=== PATIENT | female | born 1985 | race Two or more races ===

== ENCOUNTER 2019-09-17 13:41 | Outpatient (CLI) | payer OTHER | END 2019-09-17 13:42 | disposition critical access hospital (66) | LOC: EMS 13:41 | PROVIDERS: ATTEND Surgery | DX: R07.9 Chest pain, unspecified (principal) | CPT/HCPCS: A0425; A0427 ==

== ENCOUNTER 2019-09-17 14:03 | Emergency (ER) | payer OTHER ==
--- NOTE | 2019-09-17 14:12 | ED Physician Documentation ---
PD HPI CHEST PAIN - Stated complaint Stated Complaint: CP - History obtained from History obtained from: Patient, EMS - History of Present Illness Timing - onset: Today (In the shower at 1pm developed sharp central nonradiating chest pain. No SOA. Was nauseous with it. Got somewhat better with ASA/ntg with EMS. Still present. Got back from [place] but >1 month ago. No leg pain, calf swelling, or PE. No personal history or family history of coronary disease.) Review of Systems Constitutional: denies: Fever, Chills Nose: denies: Rhinorrhea / runny nose, Congestion Cardiac: denies: Palpitations, Pedal edema, Calf pain Respiratory: denies: Dyspnea, Cough, Hemoptysis, Wheezing GI: reports: Abdominal Pain (She had some abdominal pain a few days ago, completely gone now.) PD PAST MEDICAL HISTORY - Allergies Allergies/Adverse Reactions: Allergies Allergy/AdvReac Type Severity Reaction Status Date / Time No Known Drug Allergies Allergy Verified 09/17/19 14:15 PD ED PE NORMAL - Vitals Vital signs reviewed: Yes - General General: Alert and oriented X 3, No acute distress - HEENT HEENT: PERRL, EOMI - Neck Neck: Supple, no meningeal sign, No bony TTP, No bruit - Cardiac Cardiac: RRR, No murmur, Other (tender low sternum) - Respiratory Respiratory: No respiratory distress, Clear bilaterally - Abdomen Abdomen: Normal bowel sounds, Soft, Non tender - Back Back: No CVA TTP, No spinal TTP - Derm Derm: Normal color, Warm and dry - Extremities Extremities: No edema, No calf tenderness / cord - Neuro Neuro: Alert and oriented X 3, Normal speech Results - Vitals Vitals: Vital Signs - 24 hr 09/17/19 09/17/19 14:03 14:21 Temperature 36.3 C L Heart Rate 95 Respiratory 18 Rate Blood Pressure 134/69 H O2 Saturation 99 Oxygen O2 Source Room air - EKG (time done) 1411 Rate: Rate (enter#) Rhythm: NSR [place]: Normal Intervals: Normal [place] QRS: Normal Ischemia: Normal ST segments Computer interpretation: Agree with computer - Labs Labs: Laboratory Tests 09/17/19 09/17/19 09/17/19 14:28 14:28 14:28 WBC 5.3 RBC 4.55 Hgb 11.8 L Hct 38.0 MCV 83.5 MCH 25.9 L MCHC 31.1 L RDW 14.0 Plt Count 235 MPV 9.8 Neut # (Auto) 3.9 Lymph # (Auto) 1.0 L [place] # (Auto) 0.3 Eos # (Auto) 0.0 Baso # (Auto) 0.0 Absolute Nucleated RBC 0.00 Nucleated RBC % 0.0 D-Dimer 246.1 Sodium 139 Potassium 3.4 L Chloride 105 Carbon Dioxide 27 Anion Gap 7.0 BUN 11 Creatinine 0.7 Estimated GFR (MDRD) 96 Glucose 97 Calcium 8.6 Total Bilirubin 0.6 AST 16 ALT 12 Alkaline Phosphatase 56 Troponin I High Sens Total Protein 7.0 Albumin 3.7 Globulin 3.3 Albumin/Globulin Ratio 1.1 Lipase 43 09/17/19 14:28 WBC RBC Hgb Hct MCV MCH MCHC RDW Plt Count MPV Neut # (Auto) Lymph # (Auto) [place] # (Auto) Eos # (Auto) Baso # (Auto) Absolute Nucleated RBC Nucleated RBC % D-Dimer Sodium Potassium Chloride Carbon Dioxide Anion Gap BUN Creatinine Estimated GFR (MDRD) Glucose Calcium Total Bilirubin AST ALT Alkaline Phosphatase Troponin I High Sens < 2.3 L Total Protein Albumin Globulin Albumin/Globulin Ratio Lipase PD MEDICAL DECISION MAKING - ED course ED course: 34-year-old woman with chest pain consistent with costochondritis, heart score is 0. D-dimer negative. Nothing in the history or physical to suggest dissection. Pain minimal prior to discharge. Departure - Departure Disposition: 01 Home, Self Care Clinical Impression: Costochondritis, acute Chest pain Qualifiers: Chest pain type: chest pain on breathing Qualified Code(s): R07.1 - Chest pain on breathing; R07.81 - Pleurodynia Condition: Good Record reviewed to determine appropriate education?: Yes Instructions: ED Chest Pain Costochondritis Comments: Call your doctor to arrange a follow-up appointment, make the next available appointment. In the interim, return anytime if worse or if new symptoms develop.
[2019-09-17 14:34] LABS: BASOPHILS % (AUTO) 0.4 %; EOSINOPHILS % (AUTO) 0.8 %; HGB - HEMOGLOBIN 11.8 g/dL (12.0-16.0); MEAN CORPUSCULAR HEMOGLOBIN 25.9 pg (27.0-31.0); MEAN CORPUSCULAR HGB CONC 31.1 g/dL (32.0-36.0); MEAN CORPUSCULAR VOLUME 83.5 fL (81.0-99.0); MEAN PLATELET VOLUME 9.8 fL (7.9-10.8); MONOCYTES # (AUTO) 0.3 10^3/uL (0.0-1.0); MONOCYTES % (AUTO) 6.2 %; NEUTROPHILS # (AUTO) 3.9 10^3/uL (1.5-6.6); NEUTROPHILS % (AUTO) 73.4 %; PLT - PLATELET COUNT 235 10^3/uL (130-450); RED BLOOD COUNT 4.55 10^6/uL (4.20-5.40); WHITE BLOOD COUNT 5.3 x10^3/uL (4.8-10.8)
--- NOTE | 2019-09-17 14:44 | XRAY Report ---
Reason: chest pain Procedure Date: 09/17/2019 Accession Number: [id number] / [id number] Procedure: XR - Chest 1 View X-Ray CPT Code: 69434 Final Report FULL RESULT: EXAM: CHEST RADIOGRAPHY EXAM DATE: 09/17/2019 02:38 PM. CLINICAL HISTORY: Chest pain. Sharp substernal chest pain. COMPARISON: None. TECHNIQUE: 1 view. FINDINGS: Lungs/Pleura: No focal opacities evident. No pleural effusion. No pneumothorax. Mediastinum: Within exam limitations, the cardiomediastinal contour is normal. Other: None. IMPRESSION: Normal single view chest. RADIA
[2019-09-17 14:51] LABS: ALBUMIN 3.7 g/dL (3.2-5.5); ALBUMIN/GLOBULIN RATIO 1.1 (1.0-2.2); BILIRUBIN,TOTAL 0.6 mg/dL (0.2-1.0); CALCIUM 8.6 mg/dL (8.5-10.3); CREATININE 0.7 mg/dL (0.4-1.0)
[2019-09-17 15:15] VITALS: BP 119/69
== END 2019-09-17 15:17 | disposition home or self-care (01) ==
LOC: ED 14:03
DX: M94.0 Chondrocostal junction syndrome [Tietze] (principal); R07.1 Chest pain on breathing
CPT/HCPCS: 36415; 71045; 80053; 83690; 84484; 85025; 85379; 93005; 99284

== ENCOUNTER 2020-03-19 16:50 | Outpatient (CLI) | payer OTHER | END 2020-03-19 23:59 | disposition critical access hospital (66) | LOC: EMS 16:50 | PROVIDERS: ATTEND Surgery | DX: R41.82 Altered mental status, unspecified (principal); T45.0X2A Poisoning by antiallergic and antiemetic drugs, intentional self-harm, initial encounter | CPT/HCPCS: A0425; A0427 ==

== ENCOUNTER 2020-03-19 17:05 | Observation (INO) | payer OTHER ==
--- NOTE | 2020-03-19 17:13 | ED Physician Documentation ---
PD HPI OVERDOSE - Stated complaint Stated Complaint: OD - History obtained from History obtained from: Patient, EMS - History of Present Illness Timing - onset: Today - Additional information Additional information: 34-year-old woman says she was not suicidal when she took approximately 600 mg of Benadryl at about 3:50 PM today. She was "just trying to sleep." Per paramedics she was getting a little more somnolent on the way. No history of depression per her. No possibility of . No coingestants. Review of Systems Ten Systems: 10 systems reviewed and negative Constitutional: denies: Fever, Chills Skin: denies: Rash, Lesions Musculoskeletal: denies: Neck pain, Back pain Psychiatric: denies: Depressed, Suicidal, Homicidal PD PAST MEDICAL HISTORY - Past Medical History Respiratory: Asthma - Past Surgical History Past Surgical History: No - Allergies Allergies/Adverse Reactions: Allergies Allergy/AdvReac Type Severity Reaction Status Date / Time No Known Drug Allergies Allergy Verified 09/17/19 14:15 - Social History Does the pt smoke?: No Smoking Status: Never smoker Does the pt drink ETOH?: No Does the pt have substance abuse?: No - Immunizations Immunizations: TDAP >10years/unknown PD ED PE NORMAL - Vitals Vital signs reviewed: Yes - General General: Alert and oriented X 3, Other (Slow to answer questions) - HEENT HEENT: Other (Dry MM, flushed, sl dilated pupils ++ nystagmus) - Neck Neck: Supple, no meningeal sign, No bony TTP - Cardiac Cardiac: RRR, No murmur - Respiratory Respiratory: No respiratory distress, Clear bilaterally - Abdomen Abdomen: Normal bowel sounds, Soft, Non tender - Back Back: No CVA TTP, No spinal TTP - Derm Derm: Normal color, Warm and dry - Extremities Extremities: No edema, No calf tenderness / cord - Neuro Neuro: Alert and oriented X 3, No motor deficit, No sensory deficit, Normal speech Results - Vitals Vitals: Vital Signs - 24 hr 03/19/20 03/19/20 17:10 17:24 Temperature 36.4 C L Heart Rate 96 98 Respiratory 14 10 L Rate Blood Pressure 129/71 129/71 O2 Saturation 99 99 Oxygen O2 Source Room air - EKG (time done) 1722 Rate: Rate (enter#) (98) Rhythm: NSR [place]: Normal Intervals: Normal [place]. No: Prolonged QT QRS: Normal Ischemia: Normal ST segments - Labs Labs: Laboratory Tests 03/19/20 03/19/20 17:28 17:28 WBC 7.2 RBC 4.76 Hgb 12.3 Hct 39.8 MCV 83.6 MCH 25.8 L MCHC 30.9 L RDW 13.8 Plt Count 242 MPV 10.0 Neut # (Auto) 5.9 Lymph # (Auto) 1.0 L [place] # (Auto) 0.3 Eos # (Auto) 0.0 Baso # (Auto) 0.0 Absolute Nucleated RBC 0.00 Nucleated RBC % 0.0 Sodium 141 Potassium 3.4 L Chloride 104 Carbon Dioxide 26 Anion Gap 11.0 BUN 12 Creatinine 0.8 Estimated GFR (MDRD) 82 L Glucose 97 Calcium 8.7 Total Bilirubin 0.6 AST 17 ALT 12 Alkaline Phosphatase 53 Total Protein 7.1 Albumin 4.0 Globulin 3.1 Albumin/Globulin Ratio 1.3 Lipase 34 Salicylates < 6.0 Acetaminophen < 10 L Ethyl Alcohol < 5.0 PD MEDICAL DECISION MAKING - ED course ED course: Spoke with Rosemary at Poison control about 515pm -> benzos, no charcoal, check and monitor qtc, if v agitated consider physostigmine. 34-year-old woman who took a very large Benadryl overdose. She was somnolent here but did not deteriorate to the point of needing intubation. She will need to be watched closely and spoke with Dr. Carrillo for ICU observation at 6:03 PM. QTC was normal in the emergency department but will need to be followed. Per RN the sister called and the patient had sent the sister some concerning texts suggestive of suicidal ideation even though the patient denied this. Departure - Departure Disposition: ED Place in Observation Clinical Impression: Diphenhydramine overdose of undetermined intent Qualifiers: Encounter type: initial encounter Qualified Code(s): T45.0X4A - Poisoning by antiallergic and antiemetic drugs, undetermined, initial encounter Altered mental status Qualifiers: Altered mental status type: delirium Qualified Code(s): R41.0 - Disorientation, unspecified Condition: Critical
[2020-03-19 17:43] LABS: BASOPHILS % (AUTO) 0.3 %; HGB - HEMOGLOBIN 12.3 g/dL (12.0-16.0); MEAN CORPUSCULAR HEMOGLOBIN 25.8 pg (27.0-31.0); MEAN CORPUSCULAR HGB CONC 30.9 g/dL (32.0-36.0); MEAN CORPUSCULAR VOLUME 83.6 fL (81.0-99.0); MONOCYTES # (AUTO) 0.3 10^3/uL (0.0-1.0); MONOCYTES % (AUTO) 3.5 %; NEUTROPHILS # (AUTO) 5.9 10^3/uL (1.5-6.6); NEUTROPHILS % (AUTO) 81.9 %; PLT - PLATELET COUNT 242 10^3/uL (130-450); RED BLOOD COUNT 4.76 10^6/uL (4.20-5.40); RED CELL DISTRIBUTION WIDTH 13.8 % (12.0-15.0); WHITE BLOOD COUNT 7.2 x10^3/uL (4.8-10.8)
[2020-03-19 17:57] LABS: ACETAMINOPHEN < 10 ug/mL (10-30); ALBUMIN/GLOBULIN RATIO 1.3 (1.0-2.2); ALKALINE PHOSPHATASE 53 IU/L (42-121); ALT ALANINE AMINOTRANSFERASE 12 IU/L (10-60); AST ASPARTATE AMINOTRANSFERASE 17 IU/L (10-42); BILIRUBIN,TOTAL 0.6 mg/dL (0.2-1.0); BUN - BLOOD UREA NITROGEN 12 mg/dL (6-20); CALCIUM 8.7 mg/dL (8.5-10.3); CARBON DIOXIDE - CO2 26 mmol/L (21-32); CHLORIDE 104 mmol/L (101-111); CREATININE 0.8 mg/dL (0.4-1.0); GLUCOSE 97 mg/dL (70-100); LIPASE 34 U/L (22-51); SALICYLATE < 6.0 mg/dL; SODIUM 141 mmol/L (135-145); TOTAL PROTEIN 7.1 g/dL (6.7-8.2)
[2020-03-19] MEDS ORDERED: SODIUM CHLORIDE FLUSH 0.9% 10 ML SYRINGE IVP PRN (18:04)
[2020-03-19] MEDS ORDERED: ACETAMINOPHEN 325 MG TABLET PO PRN (18:04)
[2020-03-19 18:09] LABS: HCG,QUALITATIVE BLOOD NEGATIVE
--- NOTE | 2020-03-19 18:29 | HISTORY & PHYSICAL EXAMINATION ---
Chief Complaint - Chief Complaint Chief Complaint: Drug overdose History of Present Illness - Admitted From Admitted From:: Home - History Obtained From Records Reviewed: Yes History obtained from: Patient, ER Physician, EMR - History of Present Illness HPI Comment/Other: This is a 34-year-old female with a past medical history significant for asthma who presents to the emergency department today after overdosing on Benadryl. Her sdfgnq-rm-let, Faith had called in to check on the patient as she had received some texts that were concerning to her. These texts had stated that the patient had failed at everything and she asked Faith to take care of her children. This led Faith to believe the patient may have intent to harm herself. Does believe that the patient took 600 mg of Benadryl at approximately 3:50 PM. Upon my evaluation, she is lethargic but is open her eyes and respond slowly to questions but she does not answer many of my questions. She denies this is a suicide attempt. She denies a history of depression or prior suicide attempts. She denies ingestion of any other drugs. She did not clearly state that she took Benadryl but stated that she took a sleeping aid and she is not sure how much she took. She states that she was is trying to get some rest. She currently complains of the urge to urinate. When asked any other questions, she declines to answer stating she is ready answered these questions multiple ti mes and she does not want to answer them again. In the emergency department, she is found to be hemodynamically stable. Her labs are unremarkable except for potassium of 3.4. Acetaminophen, salicylate, alcohol are all negative. Urine is also negative. Her EKG shows sinus rhythm with a QRS of 100 ms and a QTC of 459. Given the above findings, medicine was consulted for admission. History - Past Medical History Respiratory: reports: Asthma Psych: reports: Anxiety - Family & Social History Family History Comment/Other: Unable to obtain family history as the patient she does not answer questions at this moment. Living arrangement: At home Living Situation: With family Social History Notes: She reports she lives at home with her niece. She denies any smoking, alcohol use, illicit drug use. - POLST Patient has POLST: No Meds/Allgy - Allergies Allergies/Adverse Reactions: Allergies Allergy/AdvReac Type Severity Reaction Status Date / Time No Known Drug Allergies Allergy Verified 09/17/19 14:15 Review of Systems - Genitourinary Genitourinary: reports: Urgency (Review of systems is limited as the patient chooses to not answer most questions.) - All Other Systems All Other Systems: reports: Other Prior Level of Functionality: She is independent with her ADL's. Exam - Vital Signs Reviewed Vital Signs: Yes Vital Signs: Vital Signs x48h Temp Pulse Resp BP Pulse Ox 03/19/20 17:24 98 10 L 129/71 99 03/19/20 17:10 36.4 C L 96 14 129/71 99 - Physical Exam General Appearance: positive: Lethargic, Other (She is lethargic but does answer some questions slowly at times.) Eyes Bilateral: positive: Other (Pupils dilated at 4mm. Horizontal nystagmus noted bilaterally.) ENT: positive: ENT inspection nml, Dry mucous membranes Neck: positive: Nml inspection Respiratory: positive: No respiratory distress. negative: Wheezes, Rales Cardiovascular: positive: No murmur, Tachycardia. negative: Irregularly irregular, Bradycardia, Systolic murmur Abdomen: positive: Non-tender, No distention. negative: Tenderness Skin: positive: Warm, Dry Extremities: positive: Full ROM, No pedal edema Neurologic/Psychiatric: positive: Oriented x3, Other (No focal motor deficits on exam.). negative: Disoriented to person, Disoriented to place, Disoriented to time Conclusion/Plan - Problem List (1) Diphenhydramine overdose of undetermined intent Conclusion/Plan: She presents after ingesting 600 mg of Benadryl at 3:50 PM. She has a lethargic but is awake and able to protect her airway. No evidence of seizures at this time. Her EKG shows a QRS of 100 and a QTC of 459. I spoke with poison control who recommended observing her for 68 hours and if she shows no evidence of seizures or tachyarrhythmias then she will likely be medically cleared at that time. We will repeat her EKG at 10 PM this evening. If her QRS is 110 or greater then we will give her sodium bicarbonate. We will give her a liter of lactated Ringer's now continue her on maintenance IV fluids. We will monitor her on telemetry and monitor her neurologic status. Place her in one-to-one observation given the concern for possible suicide attempt. We will have social work evaluate the patient in the morning. Qualifiers: Encounter type: initial encounter Qualified Code(s): T45.0X4A - Poisoning by antiallergic and antiemetic drugs, undetermined, initial encounter (2) Lethargy Conclusion/Plan: This is secondary to the Benadryl overdose. We will monitor her neurologic s tatus and airway. - Lab Results Lab results reviewed: Yes Fish Bones: 03/19/20 17:28 03/19/20 17:28 - EKG Results EKG Interpreted Independently: Yes EKG Findings: EKG shows a sinus rhythm with a QRS of 100 and QTC of 459. Core Measures - Anticipated LOS I expect patient to be DC'd or transferred within 96 hours.: Yes - Issues Hospital Issues and Management Plan: 34-year-old female who ingested 600 mg of Benadryl. Should be placed in observation for further monitoring on telemetry and trending her EKG. - DVT/VTE - Prophylaxis VTE/DVT Device ordered at admit?: Yes VTE/DVT Prophylaxis med ordered at admit?: Yes
[2020-03-19 18:45] LABS: MAGNESIUM 1.9 mg/dL (1.7-2.8)
[2020-03-19] MEDS ORDERED: LACTATED RINGERS 1,000 ML IV ONE (19:16)
[2020-03-19] MEDS: SODIUM CHLORIDE FLUSH 0.9% 10 ML SYRINGE IVP SCH (20:04)
[2020-03-19] MEDS: LACTATED RINGERS 1,000 ML IV SCH (20:05)
[2020-03-19 20:42] LABS: MUDS CUTOFF CONCENTRATIONS CUTOFF CONC BELOW:
[2020-03-19 20:46] LABS: BILIRUBIN,URINE NEGATIVE (NEGATIVE); GLUCOSE, URINE (UA) NEGATIVE (NEGATIVE); KETONES,URINE (UA) NEGATIVE (NEGATIVE); LEUKOCYTE ESTERASE, URINE TRACE (NEGATIVE); NITRITE,URINE NEGATIVE (NEGATIVE); OCCULT BLOOD,URINE LARGE (NEGATIVE); PROTEIN,URINE 30 mg/dL (NEGATIVE); UROBILINOGEN,URINE 0.2 (NORMAL) E.U./dL (NORMAL)
[2020-03-19 20:59] LABS: BACTERIA,URINE Rare /HPF (None Seen); CLARITY,URINE HAZY (CLEAR); COCAINE SCREEN URINE NEGATIVE (NEGATIVE); METHAMPHETAMINES SCREEN, URINE NEGATIVE (NEGATIVE); RBC,URINE TNTC /HPF (0-5); SQUAMOUS EPITHELIAL CELL,UR RARE Squamous (<= Few)
[2020-03-19 21:00] LABS: AMPHETAMINE SCREEN,URINE NEGATIVE (NEGATIVE); BENZODIAZEPINES SCREEN, URINE NEGATIVE (NEGATIVE); METHADONE SCREEN, URINE NEGATIVE (NEGATIVE); OPIATE SCREEN, URINE NEGATIVE (NEGATIVE); OXYCODONE SCREEN, URINE NEGATIVE (NEGATIVE); PROPOXYPHENE SCREEN, URINE NEGATIVE (NEGATIVE); TRICYCLIC ANTIDEPRESSANT,URINE NEGATIVE (NEGATIVE)
[2020-03-20] MEDS: LACTATED RINGERS 1,000 ML IV SCH (05:34)
[2020-03-20 06:22] LABS: BASOPHILS % (AUTO) 0.3 %; EOSINOPHILS # (AUTO) 0.1 10^3/uL (0.0-0.7); EOSINOPHILS % (AUTO) 1.3 %; HGB - HEMOGLOBIN 11.5 g/dL (12.0-16.0); LYMPHOCYTES # (AUTO) 1.9 10^3/uL (1.5-3.5); LYMPHOCYTES % (AUTO) 31.4 %; MEAN CORPUSCULAR HEMOGLOBIN 26.4 pg (27.0-31.0); MEAN CORPUSCULAR HGB CONC 31.5 g/dL (32.0-36.0); MEAN CORPUSCULAR VOLUME 83.7 fL (81.0-99.0); MEAN PLATELET VOLUME 9.9 fL (7.9-10.8); MONOCYTES # (AUTO) 0.4 10^3/uL (0.0-1.0); MONOCYTES % (AUTO) 6.5 %; NEUTROPHILS # (AUTO) 3.6 10^3/uL (1.5-6.6); NEUTROPHILS % (AUTO) 60.3 %; PLT - PLATELET COUNT 239 10^3/uL (130-450); RED BLOOD COUNT 4.36 10^6/uL (4.20-5.40); RED CELL DISTRIBUTION WIDTH 14.1 % (12.0-15.0)
[2020-03-20 06:23] LABS: VBG PH 7.387 (7.31-7.41)
[2020-03-20 06:46] LABS: CALCIUM 8.5 mg/dL (8.5-10.3); CREATININE 0.8 mg/dL (0.4-1.0); PHOSPHORUS 3.5 mg/dL (2.5-4.6)
[2020-03-20] MEDS ORDERED: POTASSIUM CHLORIDE 20 MEQ TABLET PO ONE (06:49)
[2020-03-20] MEDS ORDERED: ENOXAPARIN 40 MG/0.4 ML SYRINGE SUBQ SCH (09:00)
[2020-03-20] MEDS: SODIUM CHLORIDE FLUSH 0.9% 10 ML SYRINGE IVP SCH (09:00)
--- NOTE | 2020-03-20 10:15 | PHARMACY PROGRESS NOTE ---
- Best Possible Medication History Admit Date and Time: 03/19/20 180 Processed by: Pharmacy Medication History completed: Yes Patient Interview: Completed As the person ultimately responsible for medication therapy, providers are able to order a medication from an existing home medication list in [facility] via the "Reconcile Routine" prior to Confirmation of that medication by decision support analyst. Such practice is discouraged except when the physician, in their clinical petra gment, deems that a medical need exists for a medication without regard to previous use.
[2020-03-20 13:51] VITALS: BP 109/46
--- NOTE | 2020-03-20 14:42 | Discharge Plan ---
Discharge Plan Problem Reviewed?: Yes Disposition: Home, Self Care Condition: Good Diet: Regular Activity Restrictions: Activity as Tolerated Health Concerns: You were seen in the hospital because he took too many sleeping pills and this caused you to be quite lethargic. You were observed in the hospital overnight and it was felt that this was not an intentional overdose or suicide attempt. You are now medically cleared to go home. Please follow-up with your primary care provider to discuss your insomnia. It is highly encouraged that you no longer use these sleeping pills given he took too many this time. It is also recommended you limit your caffeine use. Plan of Treatment: Please follow-up with your primary care provider to discuss options for the insomnia. Care Goals: Please see the attached documents for insomnia. Assessment: Patient expressed understanding of the treatment plan. Additional Instructions or Follow Up instructions: Please follow-up with your primary care provider within 1 week. No Smoking: If you smoke, Please STOP! Call for help.
--- NOTE | 2020-03-20 14:45 | DISCHARGE SUMMARY ---
"Discharge Summary Admit Date: 03/19/20 Discharge Date: 03/20/20 Discharging Provider: Braulio Carrillo Primary Care Provider: Justina vigil Code Status: Attempt Resuscitation Condition at Discharge: Good Discharge Disposition: 01 Home, Self Care - DIAGNOSES Admission Diagnoses: Diphenhydramine overdose of undetermined intent Lethargy Discharge Diagnoses with Status of Each Condition: Diphenhydramine overdose - resolved. Accidental overdose - resolved. - HPI History of Present Illness: This is a 34-year-old female with a past medical history significant for asthma who presents to the emergency department today after overdosing on Benadryl. Her wwduty-zh-laa, Faith had called in to check on the patient as she had received some texts that were concerning to her. These texts had stated that the patient had failed at everything and she asked Faith to take care of her children. This led Faith to believe the patient may have intent to harm herself. Does believe that the patient took 600 mg of Benadryl at approximately 3:50 PM. Upon my evaluation, she is lethargic but is open her eyes and respond slowly to questions but she does not answer many of my questions. She denies this is a suicide attempt. She denies a history of depression or prior suicide attempts. She denies ingestion of any other drugs. She did not clearly state that she took Benadryl but stated that she took a sleeping aid and she is not sure how much she took. She states that she was is trying to get some rest. She currently complains of the urge to urinate. When asked any other questions, she declines to answer stating she is ready answered these questions multiple times and she does not want to answer them again. In the emergency department, she is found to be hemodynamically stable. Her labs are unremarkable except for potassium of 3.4. Acetaminophen, salicylate, alcohol are all negative. Urine is also negative. Her EKG shows sinus rhythm with a QRS of 100 ms and a QTC of 459. Given the above findings, medicine was consulted for admission. - CONSULTS | PROCEDURES Consultations: Social Work - HOSPITAL COURSE Hospital Course: She was admitted to intensive care unit for monitoring after she had ingested approximately 600 mg of Benadryl. Repeat EKG 4 hours later showed her QRS had improved to 99 and QTc of 417. Neurologic status improved and she remained stable on telemetry. She was evaluated by social work the following morning and it was felt that she did not need evaluation by DCR and this was likely an excellent overdose. The patient told me that she denied any suicidal ideations and she has no prior history of depression or overdose attempts. She states she had taken a sleeping aids as she had not slept in approximately 2 to 3 days and has been suffering from insomnia for the past month. She does not recall how many pills she took but she is adamant that this was not a suicide attempt. She denies any manic episodes. She does drink a lot of coffee each day and we disc ussed sleep hygiene. I provided her with documents discussing insomnia and potential treatments. I asked her to follow-up with her primary care provider within the week and that she might benefit from referral to a psychologist or cognitive behavioral therapy. - ALLERGIES Allergies/Adverse Reactions: Allergies Allergy/AdvReac Type Severity Reaction Status Date / Time No Known Drug Allergies Allergy Verified 09/17/19 14:15 - MEDICATIONS Home Medications: Ambulatory Orders Medication Instructions Recorded Confirmed Albuterol Sulfate [Albuterol 1 puffs PO Q4H PRN 03/20/20 03/20/20 Sulfate Hfa] Fluticasone/Salmeterol [Advair 1 each IH DAILY 03/20/20 03/20/20 250-50 Diskus] - PHYSICAL EXAM AT DISCHARGE General Appearance: positive: No acute distress, Alert Eyes Bilateral: positive: Normal inspection, PERRL, EOMI, Conjunctivae nml ENT: positive: ENT inspection nml Neck: positive: Nml inspection Respiratory: positive: No respiratory distress. negative: Wheezes, Rales, Rhonchi Cardiovascular: positive: Regular rate & rhythm, No murmur. negative: Tachycardia, Bradycardia Abdomen: positive: Non-tender, No distention. negative: Tenderness, Guarding, Rebound Skin: positive: No rash, Warm, Dry Extremities: positive: Full ROM, No pedal edema Neurologic/Psychiatric: positive: Oriented x3, Motor nml. negative: Disoriented to person, Disoriented to place, Disoriented to time Physical Exam Other/Comments: Vital Signs - 24 hr 03/19/20 03/19/20 03/19/20 17:10 17:24 18:55 Temperature 36.4 C L 38.0 C H Heart Rate 96 98 Heart Rate [ 97 Brachial] Heart Rate [ Monitoring electrodes] Respiratory 14 10 L 21 Rate Blood Pressure 129/71 129/71 Blood Pressure 135/105 H [Left Brachial artery] O2 Saturation 99 99 98 03/19/20 03/19/20 03/19/20 19:00 19:24 20:00 Temperature 37.5 C Heart Rate Heart Rate [ 81 Brachial] Heart Rate [ 87 Monitoring electrodes] Respiratory 12 Rate Blood Pressure Blood Pressure 152/64 H 168/73 H 184/84 H [Left Brachial artery] O2 Saturation 96 03/19/20 03/19/20 03/19/20 21:00 22:00 23:00 Temperature Heart Rate Heart Rate [ Brachial] Heart Rate [ 79 65 67 Monitoring electrodes] Respiratory 11 L 13 16 Rate Blood Pressure Blood Pressure 182/70 H 131/59 H 135/68 H [Left Brachial artery] O2 Saturation 97 97 96 03/20/20 03/20/20 03/20/20 00:00 00:17 01:00 Temperature 37.1 C Heart Rate Heart Rate [ Brachial] Heart Rate [ 63 61 Monitoring electrodes] Respiratory 16 12 Rate Blood Pressure Blood Pressure 124/60 121/70 [Left Brachial artery] O2 Saturation 96 96 03/20/20 03/20/20 03/20/20 02:00 03:00 04:00 Temperature Heart Rate Heart Rate [ Brachial] Heart Rate [ 61 58 L 45 L Monitoring electrodes] Respiratory 11 L 13 12 Rate Blood Pressure Blood Pressure 128/70 121/57 L 115/65 [Left Brachial artery] O2 Saturation 96 97 96 03/20/20 03/20/20 03/20/20 05:00 05:59 07:02 Temperature 36.9 C Heart Rate Heart Rate [ Brachial] Heart Rate [ 58 L 55 L 51 L Monitoring electrodes] Respiratory 16 15 13 Rate Blood Pressure Blood Pressure 115/59 L 109/64 125/68 [Left Brachial artery] O2 Saturation 97 97 98 03/20/20 03/20/20 03/20/20 07:58 08:49 09:03 Temperature 36.9 C Heart Rate 68 Heart Rate [ Brachial] Heart Rate [ 56 L 69 Monitoring electrodes] Respiratory 16 13 13 Rate Blood Pressure Blood Pressure 125/68 111/65 [Left Brachial artery] O2 Saturation 98 98 98 03/20/20 03/20/20 03/20/20 09:49 11:00 13:00 Temperature Heart Rate Heart Rate [ Brachial] Heart Rate [ 68 57 L 60 Monitoring electrodes] Respiratory 15 17 16 Rate Blood Pressure Blood Pressure 106/56 L 102/46 L 109/46 L [Left Brachial artery] O2 Saturation 98 95 94 - LABS Result Diagrams: 03/20/20 05:30 03/20/20 05:30 - FOLLOW UP Follow Up: She was asked to follow-up with her primary care provider within 1 week. - TIME SPENT Time Spent in Discharge (Minutes): 35"
== END 2020-03-20 16:20 | disposition home or self-care (01) ==
LOC: EDUNIT# → ED 17:05 → ICU 18:04 → EEVIPCON 18:39 → UNDOADMOB 18:39 → ICU 18:39
PROVIDERS: ADMIT Internal Medicine; ATTEND Internal Medicine
DX: T45.0X1A Poisoning by antiallergic and antiemetic drugs, accidental (unintentional), initial encounter (principal); R53.83 Other fatigue; Y92.009 Unspecified place in unspecified non-institutional (private) residence as the place of occurrence of the external cause; G47.00 Insomnia, unspecified
CPT/HCPCS: 36415; 80048; 80320; 80329; 81001; 82040; 82330; 83690; 83735; 84100; 84703; 85025; 87086; 87150; 93005; 96360; 96361; 99285; A9270; G0378; J1650; J7120; 80053; 80306; 80307; 81003; 84443